=== PATIENT | female | born 1970 | race Two or more races ===

== ENCOUNTER 2022-08-10 20:51 | Emergency (ER) | payer MEDICAID, OTHER ==
[~2022-08-10] VITALS: Ht 162.6 cm; Wt 125.6 kg
[2022-08-10 21:02] VITALS: BP 170/90
--- NOTE | 2022-08-10 21:14 | NUR ---
PT AMBULATED TO ED 2, REPORT GIVEN TO DIO BARKLEY. URINE PROVIDED
--- NOTE | 2022-08-10 21:23 | NUR ---
Urine dip done at this time. Pt in bed 2 in position of comfort. Awaiting pt to be seen by provider and orders. Will continue to monitor.
[2022-08-10] MEDS ORDERED: KETOROLAC 30 MG/ML VIAL IVP ONE (21:40)
[2022-08-10] MEDS ORDERED: NACL 0.9% 1,000 ML IV ONE (21:40)
[2022-08-10 21:54] LABS: BASOPHILS % (AUTO) 0.6 % (0.0-2.0); EOSINOPHILS # (AUTO) 0.2 K/uL (0-0.4); EOSINOPHILS % (AUTO) 2.1 % (0.0-4.0); HEMATOCRIT 38.6 % (36-48); HEMOGLOBIN 13.1 g/dL (12.0-16.0); LYMPHOCYTES # (AUTO) 2.6 K/uL (2.5-16.5); LYMPHOCYTES % (AUTO) 34.9 % (20.5-51.1); MEAN CORPUSCULAR HEMOGLOBIN 30 pg (27-31); MEAN CORPUSCULAR HGB CONC 34 g/dL (33-37); MEAN CORPUSCULAR VOLUME 89.4 fL (80-94); MONOCYTES # (AUTO) 0.6 K/uL (0.8-1.0); MONOCYTES % (AUTO) 8.1 % (1.7-9.3); NEUTROPHILS # (AUTO) 4.1 K/uL (1.8-7.7); NEUTROPHILS % (AUTO) 54.3 % (42.2-75.2); PLATELET COUNT (AUTO) 272 K/uL (140-450); RED BLOOD CELL COUNT(AUTO) 4.32 MIL/uL (4.20-5.40); RED CELL DISTRIBUTION WIDTH 14.3 % (11.6-13.7); WHITE BLOOD COUNT (AUTO) 7.5 K/uL (4.8-10.8)
[2022-08-10 22:04] LABS: CARBON DIOXIDE 27.8 mmol/L (21-32); CREATININE 0.9 mg/dL (0.6-1.3); POTASSIUM 3.8 mmol/L (3.5-5.1)
--- NOTE | 2022-08-10 23:06 | NUR ---
Note arjun in EDM - 08/10/22 at 2309 by [id number] Patient discharged with v/s stable. Written and verbal after care instructions given and explained. Patient verbalized understanding. Ambulatory with steady gait. All questions addressed prior to discharge. Advised to follow up with PMD. IV dc'd, catheter intact. Small pressure dressing applied.
[2022-08-11 00:15] LABS: ALBUMIN 2.7 g/dL (3.4-5.0); ASPARTATE AMINOTRANSFERASE 18 U/L (15-37); BILIRUBIN,DIRECT 0.1 mg/dL (0.0-0.3); TOTAL BILIRUBIN 0.2 mg/dL (0.0-1.0)
--- NOTE | 2022-08-11 00:24 | NUR ---
Pt resting, no s/s of distress noted. Pt denies any pain at this time. Will continue to monitor. Awaiting results.
[2022-08-11 00:30] VITALS: BP 146/94
[2022-08-11 00:51] LABS: APPEARANCE,URINE CLEAR (CLEAR); BILIRUBIN,URINE NEGATIVE (NEGATIVE); BLOOD, URINE TRACE-I (NEGATIVE); COLOR,URINE YELLOW (YELLOW); LEUKOCYTE ESTERASE ,URINE NEGATIVE (NEGATIVE); NITRITE, URINE NEGATIVE (NEGATIVE); UGLUCOSE NEGATIVE (NEGATIVE)
[2022-08-11 01:07] LABS: CALCIUM OXALATE CRYSTALS,UR 0-10 /HPF (None Seen); RBC,URINE 0-5 /HPF (0-5); WBC,URINE NONE SEEN /HPF (0-5)
--- NOTE | 2022-08-11 03:48 | NUR ---
Patient discharged with v/s stable. Written and verbal after care instructions given and explained. Patient verbalized understanding. Ambulatory with steady gait. All questions addressed prior to discharge. Advised to follow up with PMD. IV dc'd, catheter intact. Small pressure dressing applied.
--- NOTE | 2022-08-13 09:14 | NUR ---
LATE ENTRY- IV NORMAL SALINE DISCONTINUED AT 0348.
== END 2022-08-11 03:40 | disposition home or self-care (01) ==
LOC: MED 20:51
DX: K80.50 Calculus of bile duct without cholangitis or cholecystitis without obstruction (principal)
CPT/HCPCS: 36415; 71045; 74176; 80048; 80076; 81001; 82948; 83690; 84484; 85025; 93005; 96361; 96374; 99285; J1885; J7030; Q0092

== ENCOUNTER 2023-02-16 10:13 | Emergency (ER) | payer OTHER ==
[~2023-02-16] VITALS: Ht 162.6 cm; Wt 117.9 kg
[2023-02-16 10:28] VITALS: BP 143/79
--- NOTE | 2023-02-16 10:39 | NUR ---
NATHEN WRAP X 1 APPLIED TO L KNEE + CMS
[2023-02-16] MEDS ORDERED: KETOROLAC 60 MG/2 ML VIAL IM ONE (10:40)
[2023-02-16] MEDS ORDERED: CYCLOBENZAPRINE 10 MG TAB PO ONE (10:40)
--- NOTE | 2023-02-16 10:43 | NUR ---
PT AMBULATES TO BED 11, WITH STEADY GAIT COMPLAINING OF LT KNEE PAIN RADIATING TO LT HIP. HX OF DM, ARTHRITIS SINCE 2017, PSORIASIS.
[2023-02-16] MEDS ORDERED: IBUP-2213 PO (11:03)
[2023-02-16] MEDS ORDERED: LID5T TP (11:03)
[2023-02-16] MEDS ORDERED: TRAM50TA3 PO (11:03)
[2023-02-16 11:18] VITALS: BP 161/84
--- NOTE | 2023-02-16 11:21 | NUR ---
The patient's care was reviewed and supervised by ED Agency Nurse 8, RN, RN.
--- NOTE | 2023-02-16 11:21 | NUR ---
Patient discharged with v/s stable. Written and verbal after care instructions given and explained. Patient alert, oriented and verbalized understanding of instructions. Ambulatory with steady gait. All questions addressed prior to discharge. ID band removed. Patient advised to follow up with PMD. Rx of IBUPROFEN, LIDOCAINE, TRAMADOL HCI given. Patient educated on indication of medication including possible reaction and side effects. Opportunity to ask questions provided and answered.
== END 2023-02-16 11:18 | disposition home or self-care (01) ==
LOC: MED 10:13
DX: M17.12 Unilateral primary osteoarthritis, left knee (principal); M06.9 Rheumatoid arthritis, unspecified; L40.9 Psoriasis, unspecified; E11.9 Type 2 diabetes mellitus without complications; I10 Essential (primary) hypertension; Z79.899 Other long term (current) drug therapy; Z79.891 Long term (current) use of opiate analgesic; Z79.1 Long term (current) use of non-steroidal anti-inflammatories (NSAID)
CPT/HCPCS: 73562; 96372; 99283; J1885